=== PATIENT | male | born 1970 | race Caucasian/White ===

== ENCOUNTER 2019-02-11 23:38 | Emergency (ER) | payer OTHER ==
[~2019-02-11] VITALS: Ht 180.3 cm; Wt 83.9 kg
[2019-02-11 23:39] VITALS: BP 160/90
--- NOTE | 2019-02-11 23:39 | NUR ---
to bed # 11 ambulatory
[2019-02-11] MEDS ORDERED: KETOROLAC 60 MG/2 ML VIAL IM ONE (23:45)
--- NOTE | 2019-02-11 23:45 | NUR ---
48 YO MALE BIB SELF FOR C/O LEFT UPPER BACK PAIN. PT STATES PAIN IS 8/10 ACHINESS, TIGHTNESS X 6-7 DAYS. PT SEES OUTPT MD/THERAPY FOR PAIN MANAGEMENT. ACTIVE ROM TO LEFT SHOULDER, PT STATES HE HAS BEEN UNDER RECENT STRESS WITH SPOUSE, AND STATES, " I FEEL STRESSED OUT."PT DENIES N/V/D. ABBY LOCKED IN LOWEST POSITON. CALL LIGHT WITHIN REACH. HX: DENIES ALLERGIES: DENIES RX: BACLOFEN, "PT STATES OTHER MUSCLE RELAXANT MEDICATION"
--- NOTE | 2019-02-11 23:52 | NUR ---
Dr. Burrell examining patient.
[2019-02-11 23:58] VITALS: BP 135/82
== END 2019-02-12 00:27 | disposition home or self-care (01) ==
LOC: MED 23:38
DX: M54.6 Pain in thoracic spine (principal); Z98.890 Other specified postprocedural states
CPT/HCPCS: 96372; 99283; J1885